=== PATIENT | male | born 1970 | race Two or more races ===

== ENCOUNTER 2020-08-06 07:00 | Inpatient (IN) | payer OTHER ==
[~2020-08-06] VITALS: Ht 182.9 cm; Wt 99.8 kg
[2020-08-06] MEDS ORDERED: ZOLOFT100 MG PO (07:34)
[2020-08-06] MEDS ORDERED: RESTORIL15 M1 PO (07:35)
[2020-08-06] MEDS ORDERED: ATIVAN1 M1 PO (07:35)
[2020-08-06] MEDS ORDERED: REMERON15 MG PO (07:35)
[2020-08-06] MEDS ORDERED: LAMICTAL100 M1 PO (07:36)
[2020-08-06] MEDS ORDERED: ABILIFY5 MG PO (07:36)
[2020-08-06] MEDS ORDERED: [UNRECOGNIZED DRUG - OTHER] PO (07:37)
[2020-08-13] MEDS ORDERED: PRAZOSIN HCL1 MG (11:31)
== END 2020-08-16 13:12 | DRG 470 ==
LOC: O/R 08-13 06:06 → SURG 08-13 06:06 → SURH 08-13 07:00 → SURG 08-13 15:03
PROVIDERS: ADMIT Orthopaedic Surgery; ATTEND Orthopaedic Surgery
PROC: 0SRC0J9 Replacement of Right Knee Joint with Synthetic Substitute, Cemented, Open Approach (ICD-10-PCS; principal; 2020-08-13 09:30)
DX: M17.11 Unilateral primary osteoarthritis, right knee (principal); D62 Acute posthemorrhagic anemia; E78.00 Pure hypercholesterolemia, unspecified; F41.8 Other specified anxiety disorders